=== PATIENT | female | born 1985 | race Caucasian/White ===

== ENCOUNTER 2016-10-14 13:05 | Emergency (ER) | payer OTHER ==
[2016-10-14 13:13] VITALS: BP 122/72
--- NOTE | 2016-10-14 13:17 | ED Physician Documentation ---
PD HPI HEENT - Stated complaint Stated Complaint: RT EAR PAIN - Chief complaint Chief Complaint: Heent - History obtained from History obtained from: Patient - History of Present Illness Timing - onset: Other (2 weeks of right ear pain, worse despite being on Ciprodex as prescribed by her base physician. No problems with hearing and no other URI symptoms. No fevers. Pain radiates up and down the side of the face. ) Review of Systems Constitutional: denies: Fever, Chills Ears: reports: Ear pain. denies: Loss of hearing, Drainage/discharge Nose: denies: Rhinorrhea / runny nose, Congestion PD PAST MEDICAL HISTORY - Past Medical History Past Medical History: No Cardiovascular: None Respiratory: None Neuro: None Endocrine/Autoimmune: None GI: None [employer]: None : None HEENT: None Psych: None Musculoskeletal: None Derm: None - Past Surgical History Past Surgical History: Yes General: Appendectomy - Present Medications Home Medications: Ambulatory Orders Medication Instructions Recorded Confirmed Amox/Clav 875/125 [Augmentin 1 tab PO DAILY 10/14/16 10/14/16 875/125] Neomycin/Polymyx/Hc Otic Drops 4 drops OT TID #1 bottle 10/14/16 [Cortisporin Ear Susp] - Allergies Allergies/Adverse Reactions: Allergies Allergy/AdvReac Type Severity Reaction Status Date / Time No Known Drug Allergies Allergy Verified 03/31/16 18:13 - Social History Does the pt smoke?: No Smoking Status: Never smoker Does the pt drink ETOH?: Yes Does the pt have substance abuse?: No - Immunizations Immunizations are current?: Yes - POLST Patient has POLST: No PD ED PE NORMAL - Vitals Vital signs reviewed: Yes - General General: Alert and oriented X 3, No acute distress - HEENT HEENT: Other (TMs are normal. She does have a swollen but not occluded canal on the right with tenderness consistent with otitis externa. No lymphadenopathy or obvious facial swelling. No mastoid tenderness.) - Neck Neck: Supple, no meningeal sign, No bony TTP - Neuro Neuro: Alert and oriented X 3, Normal speech - Psych Psych: Normal mood, Normal affect Results - Vitals Vitals: Vital Signs - 24 hr 10/14/16 13:09 Temperature 36.9 C Heart Rate 72 Respiratory 16 Rate Blood Pressure 122/72 O2 Saturation 99 Oxygen O2 Source Room air Departure - Departure Disposition: 01 Home, Self Care Clinical Impression: Otitis externa, left Qualifiers: Otitis externa type: diffuse Chronicity: acute Qualified Code(s): H60.312 - Diffuse otitis externa, left ear Condition: Good Record reviewed to determine appropriate education?: Yes Instructions: Cephalosporin Prescriptions: Neomycin/Polymyx/Hc Otic Drops [Cortisporin Ear Susp] 4 drops OT TID #1 bottle Comments: Call your doctor to arrange a follow-up appointment, make the next available appointment. In the interim, return anytime if worse or if new symptoms develop.
== END 2016-10-14 13:25 | disposition home or self-care (01) ==
LOC: ED 13:05
DX: H92.01 Otalgia, right ear (principal); H60.312 Diffuse otitis externa, left ear
CPT/HCPCS: 99282; 99283